=== PATIENT | female | born 1965 | race Caucasian/White ===

== ENCOUNTER 2023-07-11 13:25 | Emergency (ER) | payer OTHER, SELFPAY ==
[2023-07-11 13:29] VITALS: BP 123/90
--- NOTE | 2023-07-11 14:02 | ED.GENMED ---
History of Present Illness
General
Chief Complaint: DVT/Possible Blood Clot
Source: patient
Exam Limitations: none
Time Seen by Provider: 07/11/23 13:37
Nursing documentation reviewed up to this point in time: agreed with
Travel History
Have you had any contact with someone who has COVID-19?: No
Do you have any symptoms of coronavirus? Fever > 100 degrees, chills, cough, shortness of breath, sore throat, loss of taste or smell, muscle aches, or headache?: No
History of Present Illness
History of Present Illness:
pt is a 57 y/o F
h/o b/l knee arthritis
has seen [facility] in the past for right knee meniscus but was told both knees have severe arthritis
2 weeks ago after shoveling snow had some posterior L knee and calf pain
she says it has not gone away
she has been using a cane to walk the past 3 days because she has a lot of pain with knee flexion and weight bearing
the swlling is not snigifcnatly worse
no numbness/tingling/weakness, foot drop, color change, fever, chills, cp, sob
has tried tylenol wihtout relief
cannot take NSAIDS.
Past History
Past History
ED Past Medical History: Other (glaucoma)
Social History
Tobacco: Non-smoker
Drug: None
Personal:
Living: with family
Review of Systems
Review of Systems
Allergies reviewed?: Yes
All Other Systems: Not applicable
Phy Exam
Physical Exam
Physical Exam:
GENERAL: Alert , in no apparent distress, comfortable at rest
HEAD: NCAT
CV: 2+ DP PULSES B/L
NEUROLOGICAL: Alert and oriented, no focal neuro deficits, , 5/5 strength, sensation intact, ambulation slight limp right leg
SKIN: Warm and dry, normal skin inspection left lower leg/knee
MUSCULOSKELETAL: left calf slightly swollen
normal skin
nontender calf, neg homans sign, compartment soft
left knee slightly swollen
posterior tenderness with fullness
pain with flexion, able to flex 30 degrees
no laxity on varus or valgus stress
can straight leg raise with pain
PSYCH: Normal and appropriate interaction.
Course
Orders/Labs/Results
Orders:
Orders
07/11/23 13:38
Legs, left US [US Periph Venous LOWER Ext LT] Urgent
Comment:
Reason For Exam: popliteal pain x 2 weeks
07/11/23 13:45
CR Knee - Left 4 Or More View* Urgent
Comment:
Reason For Exam: left knee pain, posterior
07/11/23 13:53
Hydrocodone 5/APAP 325 [[place] 5/325] 1 tablet PO NOW STA
Vital Signs
Initial and Last Documented VS:
Initial Vital Signs
Temp Pulse Resp BP Pulse Ox
98.3 F 88 16 123/90 98
07/11/23 13:29 07/11/23 13:29 07/11/23 13:29 07/11/23 13:29 07/11/23 13:29
Last Documented Vital Signs
Temp Pulse Resp BP Pulse Ox
98.3 F 88 16 123/90 98
07/11/23 13:29 07/11/23 13:29 07/11/23 13:29 07/11/23 13:29 07/11/23 13:29
MDM/Problems Addressed
Differential Diagnosis Includes:
knee arthritis, bakers cyst, dvt
MDM/Problems Addressed:
57 y/o F with h/o known arthritis both knees here with 2 weeks knee pain,mostly posterior and into her calf after shoveling
she has had worsening pain x 2-3 days and any movement of the knee and weight bearing is mroe painful
she thought her calf also looked a little more swollen
using a friends cane
no fever, chills, redness, paresthesias, foot drop, cp, sob
on exam pt had pain with knee flexion but able to flex 30 degrees
calf slightly swollen nontender
mild posterior knee swelling and tendneress, smlall effusino posteriorly
US shows no dvt, and possibly a haji's cyst
xray mild djd
juliocesar wrap
f/u ortho
pain meds
pt says tylenol isn't cutting it and she cannot take nsaids because of allergy
will give short course vicodin for more severe pain
warm compresses
ortho
*Critical Care Note
Total Time (30-74mins, 75-104mins- exclusive of procedures): Not Applicable
ED Attending Note
-
Portions of this chart may have been created with voice recognition software.� Occasional wrong word or��sound alike� substitutions may have occurred due to the inherent limitations of voice recognition software.
Discharge Plan
Departure
Patient Disposition: Home (Routine Discharge)
Date of Disposition: 07/11/23
Time of Disposition: 15:27
Patient with high blood pressure during this ER visit?: No
Condition: Fair
Covid-19: Not Applicable
Discharge Problem:
Acute knee pain, Haji's cyst of knee
Instructions: Haji's Cyst (DC)
Prescriptions:
New
hydrocodone-acetaminophen 5-325 mg tablet
1 tab PO Q8H PRN (Reason: Pain) Qty: 9 0RF
Referrals:
Nancy Ubrano MD [Family Provider] - Follow up in 2-3 days
Juan Nicole MD [Active] - Follow up in 5-7 days ([facility])
Activity Restrictions/Additional Instructions:
YOUR ULTRASOUND WAS NEGATIVE FOR CLOT
YOU HAVE SIGNS OF A FLUID COLLECTION BEHIND YOUR KNEE THAT IS CONSISTENT WITH A HAJI'S CYST OR SYNOVIAL CYST
THESE CAN DEVELOP FROM HAVING ARTHRITIS
YOU CAN WEAR THE JULIOCESAR WRAP WHILE AWAKE, TAKE IT OFF AT NIGHT
YOU CAN DO ICE OR HEAT
FOR PAIN EITHER USE TYLENOL OR VICODIN (THE VICODIN IS IF THE PAIN IS SEVERE); OTHERWISE USE TYLENOL
FOLLOW UP WITH ORTHOPEDICS
THIS SHOULD RESOLVE ON ITS OWN
RETURN FOR: SEVERE PAIN, INABILITY TO WALK, FEVER, CHILLS, FOOT DROP, NUMBNESSIN THE FOOT, COLOR CHANGE OR ANY CONCERNS.
Interventions
Interventions:
*Risk Screen - Suicide Last Done: 07/11/23 13:29
*General Assessment Last Done: 07/11/23 13:29
*Neglect/Abuse Screening Last Done: 07/11/23 13:29
[2023-07-11] MEDS: NORCO 5/325 1 TABLET PO (14:03)
== END 2023-07-11 15:42 | disposition home or self-care (01) ==
LOC: EMR 13:25
PROVIDERS: EMERGENCY PHYSICIAN Emergency Medicine; FAMILY PHYSICIAN Family Medicine
DX: M71.22 Synovial cyst of popliteal space [Baker], left knee (principal); M25.562 Pain in left knee; M17.0 Bilateral primary osteoarthritis of knee; H40.9 Unspecified glaucoma; K21.9 Gastro-esophageal reflux disease without esophagitis; Z88.6 Allergy status to analgesic agent
CPT/HCPCS: 99284; 73564; 93971

== ENCOUNTER → 2024-03-22 08:26 | Outpatient (REF) | payer OTHER, SELFPAY | LOC: WDC 08:26 | PROVIDERS: ATTENDING PHYSICIAN Obstetrics & Gynecology Gynecology; FAMILY PHYSICIAN Family Medicine | DX: Z12.31 Encounter for screening mammogram for malignant neoplasm of breast (principal) | CPT/HCPCS: 77063; 77067 ==

== ENCOUNTER → 2024-03-22 14:19 | Outpatient (REF) | payer OTHER, SELFPAY | LOC: RAD 14:19 | PROVIDERS: ATTENDING PHYSICIAN Internal Medicine; FAMILY PHYSICIAN Family Medicine | DX: E78.00 Pure hypercholesterolemia, unspecified (principal); E78.1 Pure hyperglyceridemia | CPT/HCPCS: 75571 ==

== ENCOUNTER → 2024-03-25 13:44 | Outpatient (REF) | payer OTHER, SELFPAY | LOC: RCS 13:44 | PROVIDERS: ATTENDING PHYSICIAN Internal Medicine; FAMILY PHYSICIAN Family Medicine | DX: R06.00 Dyspnea, unspecified (principal); I77.810 Thoracic aortic ectasia | CPT/HCPCS: 93306 ==

== ENCOUNTER → 2024-03-29 07:30 | Outpatient (REF) | payer OTHER, SELFPAY | LOC: RCS 07:30 | PROVIDERS: ATTENDING PHYSICIAN Internal Medicine; FAMILY PHYSICIAN Family Medicine | DX: R06.00 Dyspnea, unspecified (principal); I77.810 Thoracic aortic ectasia | CPT/HCPCS: 93017 ==

== ENCOUNTER → 2024-10-02 13:28 | Outpatient (REF) | payer OTHER, SELFPAY | LOC: RAD 13:28 | PROVIDERS: ATTENDING PHYSICIAN Obstetrics & Gynecology Gynecology | DX: R10.2 Pelvic and perineal pain (principal) | CPT/HCPCS: 76830; 76856 ==

== ENCOUNTER → 2025-01-27 14:27 | Outpatient (REF) | payer OTHER, SELFPAY | LOC: RAD 14:27 | PROVIDERS: ATTENDING PHYSICIAN Nurse Practitioner Adult Health; FAMILY PHYSICIAN Family Medicine | DX: N39.0 Urinary tract infection, site not specified (principal) | CPT/HCPCS: 76770 ==

== ENCOUNTER → 2025-03-28 08:17 | Outpatient (REF) | payer OTHER, SELFPAY | LOC: WDC 08:17 | PROVIDERS: ATTENDING PHYSICIAN Family Medicine | DX: Z12.31 Encounter for screening mammogram for malignant neoplasm of breast (principal) | CPT/HCPCS: 77063; 77067 ==